=== PATIENT | female | born 1985 | race Caucasian/White ===

== ENCOUNTER 2019-01-27 21:18 | Emergency (ER) | payer OTHER ==
[~2019-01-27] VITALS: Ht 162.6 cm; Wt 53.5 kg
[~2019-01-27 21:18] MED LIST: ACETAMINOPHEN-1 EAC1 PO; ALLEGRA ALLERG180 MG; BIRTH CONTROL; IBUPROFEN 800800 MG PO
[2019-01-27 21:59] LABS: ABSOLUTE NEUTROPHILS 5.7 thou/uL (1.4-8.2); BASOPHILS 0.6 % (0.0-2.0); EOSINOPHILS 1.6 % (0.0-3.0); HEMATOCRIT 40.7 % (37.0-47.0); HEMOGLOBIN 13.5 gm/dL (12.0-15.0); LYMPHOCYTES 31.4 % (24.0-44.0); MCH 31.7 pg (26.0-34.0); MCHC 33.2 g/dL (28.0-37.0); MCV 95.6 fL (80.0-100.0); MONOCYTES 11.7 % (1.0-8.0); PLATELET COUNT 274 thou/uL (150-400); POLYS 54.7 % (36.0-66.0); RBC 4.25 mil/uL (4.20-5.00); RDW 12.7 % (10.5-14.5); WBC 10.5 thou/uL (4.0-11.0)
[2019-01-27 22:00] LABS: CALCIUM 9.5 mg/dL (8.5-10.1); CREATININE 0.8 mg/dL (0.6-1.0); POTASSIUM 3.5 mmol/L (3.5-5.1)
[2019-01-27 22:06] LABS: ALBUMIN 4.5 g/dL (3.4-5.0); DIRECT BILIRUBIN 0.1 mg/dL (<0.1-0.3); TOTAL BILIRUBIN 0.4 mg/dL (<0.1-1.0)
[2019-01-27 22:15] LABS: URINE BILIRUBIN NEGATIVE (Negative); URINE BLOOD 3+ (Negative); URINE CLARITY CLEAR; URINE COLOR YELLOW; URINE GLUCOSE-RANDOM* NEGATIVE (Negative); URINE KETONES NEGATIVE (Negative); URINE LEUKOCYTES-REFLEX TRACE (Negative); URINE NITRITE-REFLEX NEGATIVE (Negative); URINE PROTEIN (DIPSTICK) NEGATIVE (Negative); URINE SPECIFIC GRAVITY <= 1.005 (1.005-1.035); URINE UROBILINOGEN 0.2 E.U./dl (0.2-1.0)
[2019-01-27 22:32] LABS: CASTS None Seen /LPF (None Seen); MUCUS None Seen strn/LPF (None Seen); SQUAMOUS 0-3 Few /LPF (0-3)
[2019-01-27 22:33] LABS: BACTERIA-REFLEX None Seen /HPF (None Seen); CRYSTALS None Seen /LPF (None Seen); URINE RBC 0-2 Rare /HPF (0-2); URINE WBC-REFLEX 0-5 Rare /HPF (0-5)
[2019-01-28 00:04] VITALS: BP 111/67
== END 2019-01-28 00:05 | disposition home or self-care (01) ==
LOC: ER 21:18
PROVIDERS: Emergency Medicine
DX: K59.00 Constipation, unspecified (principal); R10.31 Right lower quadrant pain; Z90.89 Acquired absence of other organs

== ENCOUNTER → 2019-02-20 | Outpatient (CLI) | payer OTHER | LOC: MRI 02-17 10:11 | DX: K86.2 Cyst of pancreas (principal); D25.9 Leiomyoma of uterus, unspecified ==

== ENCOUNTER → 2020-01-08 | Outpatient (CLI) | payer OTHER | LOC: LAB 12:20 | PROVIDERS: ATTEND Family Medicine | DX: U07.1 COVID-19 (principal) ==

== ENCOUNTER 2020-02-24 17:59 | Emergency (ER) | payer OTHER ==
[~2020-02-24] VITALS: Ht 162.6 cm; Wt 49.9 kg
[2020-02-24] MEDS ORDERED: ERYTHROMYCIN E3.5 G3 OPHTHALMIC (19:32)
[2020-02-24] MEDS ORDERED: NORCO 5-325 TA1 EAC2 PO (19:32)
[2020-02-24] MEDS ORDERED: IBUPROFEN 600600 M1 PO (19:32)
[2020-02-24 19:39] VITALS: BP 117/79
== END 2020-02-24 19:43 | disposition home or self-care (01) ==
LOC: ER 17:59
DX: S05.02XA Injury of conjunctiva and corneal abrasion without foreign body, left eye, initial encounter (principal); Z90.89 Acquired absence of other organs; Z79.1 Long term (current) use of non-steroidal anti-inflammatories (NSAID); Z79.891 Long term (current) use of opiate analgesic; X58.XXXA Exposure to other specified factors, initial encounter; Y93.89 Activity, other specified; Y92.89 Other specified places as the place of occurrence of the external cause; Y99.8 Other external cause status

== ENCOUNTER 2020-09-26 16:21 | Emergency (ER) | payer OTHER ==
[~2020-09-26] VITALS: Ht 157.5 cm; Wt 49.9 kg
[~2020-09-26 16:21] MED LIST changes: +ERYTHROMYCIN E3.5 G3 OPHTHALMIC; +IBUPROFEN 600600 M1 PO; +NORCO 5-325 TA1 EAC2 PO
[2020-09-26 17:43] LABS: ABSOLUTE NEUTROPHILS 8.8 thou/uL (1.4-8.2); BASOPHILS 0.3 % (0.0-2.0); EOSINOPHILS 0.7 % (0.0-3.0); HEMATOCRIT 40.3 % (37.0-47.0); HEMOGLOBIN 13.4 gm/dL (12.0-15.0); LYMPHOCYTES 15.7 % (24.0-44.0); MCH 31.8 pg (26.0-34.0); MCHC 33.2 g/dL (28.0-37.0); MCV 95.9 fL (80.0-100.0); MONOCYTES 9.5 % (1.0-8.0); PLATELET COUNT 236 thou/uL (150-400); POLYS 73.8 % (36.0-66.0); RDW 12.9 % (10.5-14.5); WBC 11.9 thou/uL (4.0-11.0)
[2020-09-26 17:51] LABS: ANION GAP 11 mmol/L (7-16); BUN 13 mg/dL (7-18); CALCIUM 8.9 mg/dL (8.5-10.1); CHLORIDE 103 mmol/L (98-107); CO2 26 mmol/L (21-32); CREATININE 0.7 mg/dL (0.6-1.0); GLUCOSE 105 mg/dL (74-106); POTASSIUM 3.9 mmol/L (3.5-5.1); SODIUM 140 mmol/L (136-145)
[2020-09-26 18:01] LABS: ALBUMIN 4.4 g/dL (3.4-5.0); SGOT 15 U/L (15-37); SGPT 22 U/L (30-65); TOTAL BILIRUBIN 0.5 mg/dL (0.2-1.0); TOTAL PROTEIN 7.7 g/dL (6.4-8.2); TROPONIN-I <0.06 ng/mL (<0.06)
[2020-09-26] MEDS ORDERED: CYCLOBENZAPRINE5 MG PO (19:01)
[2020-09-26 19:33] VITALS: BP 100/63
--- NOTE | 2020-09-27 07:31 | EKG ---
[place] [address] [address] [facility] [place] [address] ELECTROCARDIOGRAM REPORT Name: FAZAL GLORIA Room #: [facility]#: [id number] Admission: 09/26/20 Attend Phys: Discharge: 09/26/20 Date of : 89 Report #: [id number] [facility] ED Test Date: 2020-09-26 Test Time: 17:44:59 Pat Name: FAZAL GLORIA Department: Room: Gender: F [employer]: [place] : 1985 Requested By: Juliane Pagan Order Number: [id number] MD: Joseluis Norton Measurements Intervals [place] Rate: 97 P: -3 MD: 122 QRS: 56 QRSD: 76 T: -4 QT: 355 QTc: 451 Interpretive Statements Sinus rhythm Low voltage, precordial leads Baseline wander in lead(s) V5 No previous ECG available for comparison Electronically Signed On 09-27-2020 7:30:49 CDT by Joseluis Norton [email or web address] <ELECTRONICALLY SIGNED> By: Joseluis Norton MD, [facility] 09/27/20 0730 1744 1744 Joseluis Norton MD, FACC /EPI
== END 2020-09-26 19:35 | disposition home or self-care (01) ==
LOC: ER 16:21
PROVIDERS: Physician Assistant
DX: M25.551 Pain in right hip (principal); M54.5 Low back pain; M54.2 Cervicalgia; R20.2 Paresthesia of skin; Z98.890 Other specified postprocedural states